=== PATIENT | female | born 1965 | race Caucasian/White ===

== ENCOUNTER → 2020-08-30 | Outpatient (CLI) | payer OTHER | LOC: KOH-I 08:15 | DX: J84.9 Interstitial pulmonary disease, unspecified (principal) | CPT/HCPCS: 71250 ==

== ENCOUNTER → 2021-02-21 | Outpatient (CLI) | payer OTHER | LOC: HEART 5 01-27 08:30 | DX: R07.9 Chest pain, unspecified (principal) | CPT/HCPCS: 78452; 93306; A9502; J2785 ==